=== PATIENT | male | born 1975 | race Two or more races ===

== ENCOUNTER 2021-03-06 05:38 | Emergency (ER) | payer SELFPAY ==
[~2021-03-06] VITALS: Ht 180.3 cm; Wt 81.6 kg
[2021-03-06 05:39] VITALS: BP 132/76
[2021-03-06] MEDS ORDERED: ACETAMINOPHEN 325 MG TAB PO ONE (06:10)
--- NOTE | 2021-03-06 06:30 | NUR ---
PATIENT BIB [facility]. PATIENT EXAMINED BY DR. AMATO. PATIENT MEDICALLY CLEARED AND RELEASED IN CUSTODY IN STABLE CONDITION. ORIGINAL PRE-BOOK FORM GIVEN TO OFFICER NAVIN, #[id number].
== END 2021-03-06 06:30 ==
LOC: MED 05:38
DX: S50.12XA Contusion of left forearm, initial encounter (principal); R07.9 Chest pain, unspecified; Z02.89 Encounter for other administrative examinations; X58.XXXA Exposure to other specified factors, initial encounter; Y93.89 Activity, other specified; Y92.89 Other specified places as the place of occurrence of the external cause; Y99.8 Other external cause status
CPT/HCPCS: 99283